=== PATIENT | female | born 1970 | race Caucasian/White ===

== ENCOUNTER 2016-09-19 11:04 | Observation (INO) | payer MEDICARE, MEDICAID ==
[~2016-09-19] VITALS: Ht 167.6 cm; Wt 73.0 kg
[~2016-09-19 11:04] MED LIST: ACET-709 PO; PROP80TA PO
[2016-09-19] MEDS ORDERED: LORazepam 1MG TABLET PO ONE (11:30)
[2016-09-19] MEDS ORDERED: LORazepam 1MG TABLET ONE (11:37)
[2016-09-19 11:41] LABS: DAU SCREEN DISCLAIMER
[2016-09-19 12:06] LABS: BLOOD UREA NITROGEN 16 mg/dL (7-18)
[2016-09-19 12:13] LABS: ASPARTATE AMINO TRANSFERASE 19 U/L (15-37)
[2016-09-19 12:15] LABS: ACETAMINOPHEN < 2 mcg/mL (10-30)
[2016-09-19 12:16] LABS: IS PT STATUS REG ER OR PRE ER? YES
[2016-09-19] MEDS ORDERED: ZIPRASIDONE 20 MG INJ IM ONE ×4 (12:30→17:03)
[2016-09-19] MEDS ORDERED: ONDANSETRON ODT 4 MG PO PRN (18:30)
[2016-09-19] MEDS ORDERED: DOCUSATE 100 MG CAPSULE PO PRN (18:30)
[2016-09-19] MEDS ORDERED: POLYETHYLENE GLYCOL 17 GM PACKET PO PRN (18:30)
[2016-09-19] MEDS ORDERED: BISACODYL 10 MG SUPP PR PRN (18:30)
[2016-09-19] MEDS ORDERED: PROPRANOLOL HCL 80 MG PO SCH (21:00)
[2016-09-19] MEDS ORDERED: APAP/CODEINE 300/30MG TABLET PO SCH (21:00)
[2016-09-20 01:30] VITALS: BP 105/69
[2016-09-20] MEDS ORDERED: LORazepam 1MG TABLET PO PRN (02:00)
[2016-09-20] MEDS ORDERED: LORazepam 1MG TABLET ONE (02:28)
[2016-09-20] MEDS ORDERED: ZIPRASIDONE 20 MG INJ IM ONE ×2 (02:30→03:00)
== END 2016-09-20 07:22 | disposition home or self-care (01) ==
LOC: ED 11:48 → EDIP 14:28 → UNDOADMOB 14:28 → 3E 18:20 → ED 09-20 07:22
PROVIDERS: ADMIT Internal Medicine; ATTEND Internal Medicine
DX: R45.851 Suicidal ideations (principal); F41.9 Anxiety disorder, unspecified; F32.9 Major depressive disorder, single episode, unspecified; F43.10 Post-traumatic stress disorder, unspecified; R45.1 Restlessness and agitation
CPT/HCPCS: 36415; 71010; 80053; 80307; 80329; 81001; 84484; 84703; 85025; 87086; 93005; 96372; 99285; G0378; J3486; G0480